=== PATIENT | male | born 1995 | race Caucasian/White ===

== ENCOUNTER 2017-10-10 22:46 | Emergency (ER) | payer OTHER ==
[~2017-10-10] VITALS: Ht 190.5 cm; Wt 83.9 kg
--- OUTSIDE RECORDS SUMMARY | 2017-10-10 22:54 | XMS REPORT | Continuity of Care Document ---
Author Author [facility] Organization [facility] Address Unknown Phone Unavailable Allergies There is no data. Medications There is no data. Problems Date Dx Coded Attending Type Code Diagnosis Diagnosed By 06/07/2016 F S62.336A Displaced fracture of neck of fifth metacarpal bone, right hand, initial encounter for closed fracture 06/12/2016 F S62.336A Displaced fracture of neck of fifth metacarpal bone, right hand, initial encounter for closed fracture 06/19/2016 F S62.336D Displaced fracture of neck of fifth metacarpal bone, right hand, subsequent encounter for fracture with routine healing 06/28/2016 F S62.336D Displaced fracture of neck of fifth metacarpal bone, right hand, subsequent encounter for fracture with routine healing Procedures Code [place] [address] MRI LOWER EXTREMITY WO CONTRAST ERWIN PATEL 10/19/2015 22319 Hand 3V PA/Obl/Lat Ethan Contreras 06/19/2016 26544 Hand 3V PA/Obl/Lat Ethan Contreras 06/28/2016 Results Test Result Range CMP - 02/09/17 15:25 GFR >60 >=60 GFR NonAfrican Norwegian >60 >=60 SODIUM:SCNC:PT:SER/PLAS:QN: 143 mmol/L 136-145 POTASSIUM:SCNC:PT:SER/PLAS:QN: 3.8 mmol/L 3.5-5.1 CHLORIDE:SCNC:PT:SER/PLAS:QN: 107 mmol/L 98-107 CARBON DIOXIDE:SCNC:PT:SER/PLAS:QN: 26 mmol/L 21-32 ANION GAP 3:SCNC:PT:SER/PLAS:QN: 10 7-16 UREA NITROGEN:MCNC:PT:SER/PLAS:QN: 9 mg/dL 6-20 CREATININE:MCNC:PT:SER/PLAS:QN: 1.1 mg/dL 0.8-1.3 GLUCOSE:MCNC:PT:SER/PLAS:QN: 81 mg/dL 70-110 CALCIUM:MCNC:PT:SER/PLAS:QN: 9.1 mg/dL 8.6-10.2 UREA NITROGEN/CREATININE:MRTO:PT:SER/PLAS:QN: 8.0 10.0- 20.1 ALKALINE PHOSPHATASE:CCNC:PT:SER/PLAS:QN: 88 unit/L 40- 129 BILIRUBIN:MCNC:PT:SER/PLAS:QN: 0.5 mg/dL 0.2-1.0 ALBUMIN:MCNC:PT:SER/PLAS:QN:BCP 4.0 gm/dL 3.4-5.0 PROTEIN:MCNC:PT:SER/PLAS:QN: 7.0 gm/dL 6.4-8.2 GLOBULIN:MCNC:PT:SER:QN:CALCULATED 3.0 gm/dL 2.0-3.5 ALBUMIN/GLOBULIN:MRTO:PT:SER/PLAS:QN: 1.3 0.9-3.6 ALANINE AMINOTRANSFERASE:CCNC:PT:SER/PLAS:QN:WITH P-5'-P 34 unit/L 0-45 ASPARTATE AMINOTRANSFERASE:CCNC:PT:SER/PLAS:QN:WITH P-5'-P 34 unit/ L 0-35 TSH - 02/09/17 15:25 THYROTROPIN:ACNC:PT:SER/PLAS:QN:DETECTION LIMIT <=0.05 MIU/L 2.29 mcIU/mL 0.36-3.74 Encounters ACCT No. Visit Date/Time Discharge Status Pt. Type Provider Facility Loc./Unit Complaint [id number] 02/09/2017 14:29:00 02/09/2017 23:59:59 [id number] 06/07/2016 00:00:00 Document Registration [id number] 10/22/2015 00:00:00 DIS Document Registration
--- NOTE | 2017-10-10 23:10 | ED Upper Extremity ---
General Chief Complaint: Laceration Stated Complaint: L INDEX FINGER LACERATION Source: patient Exam Limitations: no limitations History of Present Illness Date Seen by Provider: Oct 10, 2017 Time Seen by Provider: 22:57 Initial Comments The patient presents to the ER by private conveyance from work where he cut his left hand index finger distal phalanx with a tomato slicer just prior to arrival. It is still bleeding so he applied pressure and some gauze to get it to stop. He says he had his normal cough, and a vaccinations but he is not having a tetanus shot since 17-year-old. No fevers chills loss of function, range of motion or sensation. Allergies and Home Medications Allergies Coded Allergies: No Known Drug Allergies (Unverified , 10/10/17) Patient Home Medication List Home Medication List Reviewed: Yes Constitutional: No chills, No diaphoresis EENTM: No hearing loss, No ear pain Respiratory: No cough, No short of breath Cardiovascular: No chest pain, No edema Gastrointestinal: No abdominal pain, No constipation Past Gbzbbda-Npivfm-Qogtjm Hx Patient Social History Alcohol Use: Occasionally Uses Recreational Drug Use: Yes (THC) Smoking Status: Never a Smoker Recent Foreign Travel: No Contact w/Someone Who Travel: No Recent Hopitalizations: No Immunizations Up To Date Tetanus Booster (TDap): Less than 5yrs Seasonal Allergies Seasonal Allergies: No Past Medical History Surgeries: No Respiratory: No Cardiac: No Neurological: No Genitourinary: No Musculoskeletal: No Endocrine: No HEENT: No Cancer: No Psychosocial: No Integumentary: No Blood Disorders: No Physical Exam Vital Signs Capillary Refill : Less Than 3 Seconds Height, Weight, BMI Height: '" Weight: lbs. oz. kg; BMI Method: General Appearance: WD/WN, no apparent distress HEENT: PERRL/EOMI, pharynx normal Neck: non-tender, full range of motion Cardiovascular: normal peripheral pulses, regular rate, rhythm Respiratory: no respiratory distress, no accessory muscle use Procedures/Interventions Wound Location: Upper Extremities Other Wound Location Left hand index finger distal tip distal to the fingernail Wound Length (cm): 1 Wound's Depth, Shape: superficial Wound Explored: clean Betadine Prep?: No (soap and water) Wound Debrided: minimal Progress Patient's wound was cleaned thoroughly with soap and water and then dried and a thin layer of skin affix, cyanoacrylate was applied and allowed to dry for about 30 seconds and a second layer was applied. The wound was hemostatic, approximated, clean and the patient tolerated the procedure well. Progress/Results/Core Measures Progress Progress Note : Time: 23:09 Progress Note Closed with glue and tetanus updated. Departure Impression Primary Impression: Laceration of finger Qualified Codes: S61.211A - Laceration without foreign body of left index finger without damage to nail, initial encounter Disposition: HOME, SELF-CARE Condition: Improved Departure-Patient Inst. Decision time for Depature: 23:09 Referrals: NO,LOCAL PHYSICIAN (PCP/Family) Primary Care Physician Patient Instructions: Laceration Repair With Glue (DC) Add. Discharge Instructions: Keep the finger clean and dry for the next 30 minutes while the blue dryness. After that you can submerse and water, shower or bathe etc. The glue will flake off on its own over the next 10-14 days. All discharge instructions reviewed with patient and/or family. Voiced understanding. Work/School Note: Work Release Form Date Seen in the Emergency Department: Oct 10, 2017 Return to Work: Oct 10, 2017 Restrictions: No Restrictions JANE ERVIN Oct 10, 2017 23:10
[2017-10-10] MEDS ORDERED: TETANUS,DIPTH,PERTUSS P/F (BOOSTRIX) 0.5 ML VIAL IM ONE (23:15)
[2017-10-10 23:23] VITALS: BP 127/82
== END 2017-10-10 23:23 | disposition home or self-care (01) ==
LOC: ER 22:49
DX: S61.211A Laceration without foreign body of left index finger without damage to nail, initial encounter (principal); F12.10 Cannabis abuse, uncomplicated; W27.4XXA Contact with kitchen utensil, initial encounter
CPT/HCPCS: 90471; 90715

== ENCOUNTER → 2018-05-28 | Outpatient (CLI) | payer OTHER ==
--- NOTE | 2018-05-28 13:28 | Diagnostic Imaging Report ---
EXAMINATION: Right foot 11:32 AM. INDICATION: Injury, foot pain. Three views were obtained. COMPARISON: There are no prior studies available for comparison. FINDINGS: Reportedly, there is clinical concern regarding injury to the fifth metatarsal. The base of the fifth metatarsal appears normal and there is no clear evidence for a fracture involving the shaft. No other fracture or acute bony abnormality is appreciated. The Lisfranc joint is well maintained. The soft tissues are unremarkable. IMPRESSION: There is no evidence for an acute bony abnormality. Dictated by: Dictated on workstation # [id number]
== END ==
LOC: RAD 11:23
PROVIDERS: ATTEND Nurse Practitioner Family
DX: S99.921A Unspecified injury of right foot, initial encounter (principal)
CPT/HCPCS: 73630

== ENCOUNTER 2019-02-21 01:36 | Emergency (ER) | payer OTHER ==
[~2019-02-21] VITALS: Ht 190.5 cm; Wt 81.8 kg
[2019-02-21] MEDS ORDERED: LACTATED RINGERS 1,000 ML IV ONE ×2 (02:16→03:11)
[2019-02-21] MEDS ORDERED: HYOSCYAMINE 0.125 MG (LEVSIN) TAB SL ONE (02:30)
[2019-02-21] MEDS ORDERED: ONDANSETRON 4 MG/2 ML (SDV) Z0FRAN IVP ONE (02:30)
[2019-02-21] MEDS ORDERED: FAMOTIDINE 20MG/2ML IV (PEPCID) IVP ONE (02:30)
[2019-02-21 02:37] LABS: BASOPHILS % (AUTO) 0 % (0-10); EOSINOPHILS # (AUTO) 0.1 10^3/uL (0.0-0.3); EOSINOPHILS % (AUTO) 1 % (0-10); HEMATOCRIT 46 % (40-54); HEMOGLOBIN 16.7 G/DL (13.3-17.7); LYMPHOCYTES # (AUTO) 1.1 X 10^3 (1.0-4.0); LYMPHOCYTES % (AUTO) 6 % (12-44); MEAN CORPUSCULAR HEMOGLOBIN 30 PG (25-34); MEAN CORPUSCULAR HGB CONC 36 G/DL (32-36); MEAN CORPUSCULAR VOLUME 83 FL (80-99); MEAN PLATELET VOLUME 10.4 FL (7.4-10.4); MONOCYTES # (AUTO) 1.2 X 10^3 (0.0-1.0); MONOCYTES % (AUTO) 7 % (0-12); NEUTROPHILS # (AUTO) 15.2 X 10^3 (1.8-7.8); NEUTROPHILS % (AUTO) 87 % (42-75); PLATELET COUNT 283 10^3/uL (130-400); RED CELL DISTRIBUTION WIDTH 12.3 % (10.0-14.5); WHITE BLOOD COUNT 17.5 10^3/uL (4.3-11.0)
[2019-02-21 02:52] LABS: ALANINE AMINOTRANSFERASE 18 U/L (0-55); ALBUMIN 5.4 GM/DL (3.2-4.5); ALKALINE PHOSPHATASE 95 U/L (40-136); BILIRUBIN,TOTAL 1.7 MG/DL (0.1-1.0); BUN/CREATININE RATIO 10; CALCIUM 10.5 MG/DL (8.5-10.1); CARBON DIOXIDE 17 MMOL/L (21-32); CHLORIDE 104 MMOL/L (98-107); CREATININE SERUM 1.23 MG/DL (0.60-1.30); GFR ESTIMATED > 60; GLUCOSE 155 MG/DL (70-105); LIPASE 22 U/L (8-78); MAGNESIUM 1.4 MG/DL (1.6-2.4); POTASSIUM 3.6 MMOL/L (3.6-5.0); SODIUM 142 MMOL/L (135-145); TOTAL PROTEIN 8.3 GM/DL (6.4-8.2)
[2019-02-21 03:12] LABS: BAND NEUTROPHILS 9 %; NEUTROPHILS % (MANUAL) 73 %
[2019-02-21 03:13] LABS: BASOPHILS % (MANUAL) 1 %; EOSINOPHILS % (MANUAL) 3 %; LYMPHOCYTES % (MANUAL) 8 %; MONOCYTES % (MANUAL) 6 %; RBC MORPH NORMAL
[2019-02-21] MEDS ORDERED: MAGNESIUM 1 GM/100 ML IVPB 100 ML IV ONE (03:15)
[2019-02-21] MEDS ORDERED: LOPERAMIDE 2 MG (IMODIUM) TABLET PO ONE (03:15)
[2019-02-21] MEDS ORDERED: ONDA4TAB11 SL (04:16)
--- NOTE | 2019-02-21 04:17 | ED GI ---
General Chief Complaint: Abdominal/GI Problems Stated Complaint: VOMITING,DIARRHEA Nursing Triage Note: n/v/d abdominal pain Sepsis Screen: No Definite Risk Source of Information: Patient Exam Limitations: No Limitations History of Present Illness Date Seen by Provider: Feb 21, 2019 Time Seen by Provider: 02:13 Initial Comments This 23-year-old young man is brought to the emergency room by his girlfriend with complaints of vomiting and diarrhea profusely since around 21:00. He is not having significant pain. He does seem to have been hyperventilating and is now having contractures of his fingers and spasms in his legs. He drinks about 5 beers and smoked marijuana on the . He denies any blood in his stool. He is afebrile. He appears pale and rather fatigued. He does report history of having difficulty with anxiety. Allergies and Home Medications Allergies Coded Allergies: No Known Drug Allergies (Unverified , 10/10/17) Home Medications Ondansetron 4 Mg Tab.rapdis, 4 MG SL Q4H PRN for NAUSEA/VOMITING Prescribed by: TANI RIVERA on 02/21/19 0416 Patient Home Medication List Home Medication List Reviewed: Yes Review of Systems Review of Systems Constitutional: no symptoms reported EENTM: No Symptoms Reported Respiratory: No Symptoms Reported Cardiovascular: No Symptoms Reported Gastrointestinal: See HPI Genitourinary: No Symptoms Reported Musculoskeletal: no symptoms reported Skin: see HPI Psychiatric/Neurological: See HPI Endocrine: No Symptoms Reported Hematologic/Lymphatic: No Symptoms Reported Past Nmazgya-Mwmwpd-Iltcek Hx Past Med/Social Hx: Reviewed and Corrections made Patient Social History Alcohol Use: Occasionally Uses Alcohol Beverage of Choice: Beer Recreational Drug Use: Yes Drug of Choice: cannibus Smoking Status: Never a Smoker 2nd Hand Smoke Exposure: No Recent Foreign Travel: No Contact w/Someone Who Travel: No Recent Infectious Disease Expo: No Recent Hopitalizations: No Physical Abuse: No Sexual Abuse: No Mistreated: No Fear: No Immunizations Up To Date Tetanus Booster (TDap): Less than 5yrs Seasonal Allergies Seasonal Allergies: No Past Medical History Surgeries: No Respiratory: No Cardiac: No Neurological: No Genitourinary: No Gastrointestinal: No Musculoskeletal: No Endocrine: No HEENT: No Cancer: No Psychosocial: Yes Anxiety Integumentary: No Blood Disorders: No Physical Exam Vital Signs Vital Signs - First Documented 02/21/19 02:10 Temp 36.4 Pulse 76 Resp 16 B/P (MAP) 144/92 (109) Pulse Ox 98 O2 Delivery Room Air Capillary Refill : Less Than 3 Seconds Height/Weight/BMI Height: 6'3.00" Weight: 185lbs. oz. 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, no motor/sensory deficits, alert, oriented x 3, other (Anxious) Skin: normal color, warm/dry Progress/Results/Core Measures Results/Orders Lab Results Laboratory Tests Test 02/21/19 02:20 Range/Units White Blood Count 17.5 H 4.3-11.0 10^3/uL Red Blood Count 5.55 4.35-5.85 10^6/uL Hemoglobin 16.7 13.3-17.7 G/DL Hematocrit 46 40-54 % Mean Corpuscular Volume 83 80-99 FL Mean Corpuscular Hemoglobin 30 25-34 PG Mean Corpuscular Hemoglobin Concent 36 32-36 G/DL Red Cell Distribution Width 12.3 10.0-14.5 % Platelet Count 283 130-400 10^3/uL Mean Platelet Volume 10.4 7.4-10.4 FL Neutrophils (%) (Auto) 87 H 42-75 % Lymphocytes (%) (Auto) 6 L 12-44 % Monocytes (%) (Auto) 7 0-12 % Eosinophils (%) (Auto) 1 0-10 % Basophils (%) (Auto) 0 0-10 % Neutrophils # (Auto) 15.2 H 1.8-7.8 X 10^3 Lymphocytes # (Auto) 1.1 1.0-4.0 X 10^3 Monocytes # (Auto) 1.2 H 0.0-1.0 X 10^3 Eosinophils # (Auto) 0.1 0.0-0.3 10^3/uL Basophils # (Auto) 0.0 0.0-0.1 10^3/uL Neutrophils % (Manual) 73 % Lymphocytes % (Manual) 8 % Monocytes % (Manual) 6 % Eosinophils % (Manual) 3 % Basophils % (Manual) 1 % Band Neutrophils 9 % Blood Morphology Comment NORMAL Sodium Level 142 135-145 MMOL/L Potassium Level 3.6 3.6-5.0 MMOL/L Chloride Level 104 98-107 MMOL/L Carbon Dioxide Level 17 L 21-32 MMOL/L Anion Gap 21 H 5-14 MMOL/L Blood Urea Nitrogen 12 7-18 MG/DL Creatinine 1.23 0.60-1.30 MG/DL Estimat Glomerular Filtration Rate > 60 BUN/Creatinine Ratio 10 Glucose Level 155 H 70-105 MG/DL Calcium Level 10.5 H 8.5-10.1 MG/DL Corrected Calcium 8.5-10.1 MG/DL Magnesium Level 1.4 L 1.6-2.4 MG/DL Total Bilirubin 1.7 H 0.1-1.0 MG/DL Aspartate Amino Transf (AST/SGOT) 20 5-34 U/L Alanine Aminotransferase (ALT/SGPT) 18 0-55 U/L Alkaline Phosphatase 95 40-136 U/L Total Protein 8.3 H 6.4-8.2 GM/DL Albumin 5.4 H 3.2-4.5 GM/DL Lipase 22 8-78 U/L Serum Alcohol < 10 <10 MG/DL My Orders Orders - TANI JONES MD Ed Iv/Invasive Line Start (02/21/19 02:16) Lactated Ringers (Lr 1000 Ml Iv Solution (02/21/19 02:16) Alcohol (02/21/19 02:16) Cbc With Automated Diff (02/21/19 02:16) Comprehensive Metabolic Panel (02/21/19 02:16) Lipase (02/21/19 02:16) Magnesium (02/21/19 02:16) Ondansetron Injection (Zofran Injectio (02/21/19 02:30) Famotidine Injection (Pepcid Injection) (02/21/19 02:30) Hyoscyamine Sl Tablet (Levsin Sl Tablet) (02/21/19 02:30) Manual Differential (02/21/19 02:20) Lactated Ringers (Lr 1000 Ml Iv Solution (02/21/19 03:11) Magnesium 1 Gm/100 Ml Ivpb (Magnesium Pike (02/21/19 03:15) Loperamide Tablet (Imodium Tablet) (02/21/19 03:15) Medications Given in ED Current Medications Medications Dose Ordered Sig/Pablito Route Start Time Stop Time Status Last Admin Dose Admin Famotidine 20 mg ONCE ONCE IVP 02/21/19 02:30 02/21/19 02:31 DC 02/21/19 02:32 20 MG Hyoscyamine Sulfate 0.25 mg ONCE ONCE SL 02/21/19 02:30 02/21/19 02:31 DC 02/21/19 02:31 0.25 MG Lactated Ringer's 1,000 ml @ 0 mls/hr Q0M ONCE IV 02/21/19 02:16 02/21/19 02:18 DC 02/21/19 02:30 999 MLS/HR Lactated Ringer's 1,000 ml @ 0 mls/hr Q0M ONCE IV 02/21/19 03:11 02/21/19 03:13 DC 02/21/19 03:24 0 MLS/HR Loperamide HCl 4 mg ONCE ONCE PO 02/21/19 03:15 02/21/19 03:16 DC 02/21/19 03:24 4 MG Magnesium Sulfate/ Dextrose 100 ml @ 100 mls/hr ONCE ONCE IV 02/21/19 03:15 02/21/19 04:14 DC 02/21/19 03:24 100 MLS/HR Ondansetron HCl 8 mg ONCE ONCE IVP 02/21/19 02:30 02/21/19 02:31 DC 02/21/19 02:32 8 MG Vital Signs/I&O 02/21/19 02/21/19 02:10 04:20 Temp 36.4 36.5 Pulse 76 81 Resp 16 18 B/P (MAP) 144/92 (109) 133/71 (109) Pulse Ox 98 99 O2 Delivery Room Air Room Air Blood Pressure Mean: 109 POS Progress Progress Note : Progress Note Patient received 2 L of LR. Symptoms were treated with Zofran, Pepcid, and Levsin. Patient vomited times one around the time he received these medications. He later took Imodium without difficulty. Magnesium was replaced by IV route. Departure Impression Primary Impression: Nausea vomiting and diarrhea Additional Impression: Hypomagnesemia Disposition: 01 HOME, SELF-CARE Condition: Improved Departure-Patient Inst. Decision time for Depature: 04:14 Referrals: NO,LOCAL PHYSICIAN (PCP/Family) Primary Care Physician Patient Instructions: Viral Gastroenteritis Add. Discharge Instructions: Start with a clear liquid diet and gradually advance her diet with small quantities of bland food as tolerated. You may take [id number] Imodium for treatment of diarrhea. Follow instructions on package. Uses Zofran (ondansetron) as prescribed for nausea and vomiting. Return to care if you have worsening symptoms. All discharge instructions reviewed with patient and/or family. Voiced understanding. Scripts Ondansetron (Ondansetron Odt) 4 Mg Tab.rapdis 4 MG SL Q4H PRN for NAUSEA/VOMITING, #10 TAB Prov: TANI JONES MD 02/21/19 TANI JONES MD Feb 21, 2019 04:17 POS
[2019-02-21 04:20] VITALS: BP 133/71
== END 2019-02-21 04:20 | disposition home or self-care (01) ==
LOC: EDUNIT# 01:36 → ER 01:39
DX: E83.42 Hypomagnesemia (principal); R19.7 Diarrhea, unspecified; F41.9 Anxiety disorder, unspecified
CPT/HCPCS: 36415; 80053; 80320; 83690; 83735; 85007; 85027

== ENCOUNTER 2019-06-08 07:42 | Emergency (ER) | payer OTHER ==
[~2019-06-08] VITALS: Ht 187.9 cm; Wt 81.6 kg
[~2019-06-08 07:42] MED LIST: ONDA4TAB11 SL
[2019-06-08 08:09] VITALS: BP 130/80
[2019-06-08] MEDS ORDERED: BENZ-13 PO (08:26)
--- NOTE | 2019-06-08 08:26 | ED Cough/URI ---
General Chief Complaint: Fever-Adult/Adol Stated Complaint: FEVER / COUGH Source: patient, other Exam Limitations: no limitations History of Present Illness Date Seen by Provider: Jun 08, 2019 Time Seen by Provider: 08:10 Initial Comments Patient presents to ER by private conveyance from home with his significant other and chief complaint that Sunday started having malaise, body aches, off- again on-again productive cough with green sputum. He had a history of asthma when he was a child but after 8th grade he no longer experienced symptoms. He does not take any medications routinely. On Sunday he went to [facility] [place] and because he was afebrile but did not do any testing at that time. Today however he started experience fever with a stated Tmax of 102. He took some NyQuil before coming in. He is not having shortness of breath wheezing nausea or rash. He does not smoke cigarettes but he does use cannabis daily. The patient denies any recent travel outside the [place] [facility]. He said the only travel he is done recently was as far as [place]. No known sick contacts. Allergies and Home Medications Allergies Coded Allergies: No Known Drug Allergies (Unverified , 10/10/17) Home Medications Benzonatate 100 Mg Capsule, 100 MG PO Q6H PRN for COUGH Prescribed by: JANE ERVIN on 06/08/19 0826 Ondansetron 4 Mg Tab.rapdis, 4 MG SL Q4H PRN for NAUSEA/VOMITING Prescribed by: TANI RIVERA on 02/21/19 0416 Patient Home Medication List Home Medication List Reviewed: Yes Review of Systems Review of Systems Constitutional: chills, fever, malaise EENTM: No ear discharge, No ear pain Respiratory: cough, phlegm; No short of breath, No wheezing Cardiovascular: No chest pain, No edema Gastrointestinal: No abdominal pain, No nausea, No vomiting Genitourinary: No discharge, No dysuria Musculoskeletal: No back pain, No joint pain Skin: No pruritus, No rash All Other Systems Reviewed Negative Unless Noted: Yes Past Xruusar-Plkkku-Attncr Hx Patient Social History Alcohol Use: Occasionally Uses Alcohol Beverage of Choice: Beer Recreational Drug Use: Yes Drug of Choice: cannibus Smoking Status: Never a Smoker 2nd Hand Smoke Exposure: No Recent Foreign Travel: No Contact w/Someone Who Travel: No Recent Hopitalizations: No Immunizations Up To Date Tetanus Booster (TDap): Less than 5yrs Seasonal Allergies Seasonal Allergies: No Past Medical History Surgeries: No Respiratory: No Cardiac: No Neurological: No Genitourinary: No Gastrointestinal: No Musculoskeletal: No Endocrine: No HEENT: No Cancer: No Psychosocial: Yes Anxiety Integumentary: No Blood Disorders: No Physical Exam Vital Signs - First Documented 06/08/19 08:09 Temp 37.1 Pulse 75 Resp 15 B/P (MAP) 130/80 (97) Pulse Ox 100 O2 Delivery Room Air Capillary Refill : Height: 6'3.00" Weight: 185lbs. oz. 83.172598zz; 22.00 BMI Method:Stated General Appearance: WD/WN, no apparent distress Eyes: Bilateral Eye Normal Inspection, Bilateral Eye PERRL, Bilateral Eye EOMI HEENT: PERRL/EOMI, normal ENT inspection, TMs normal, pharyngeal erythema; No tonsillar exudate Neck: non-tender, full range of motion, supple, normal inspection Respiratory: chest non-tender, lungs clear, normal breath sounds, no respiratory distress, no accessory muscle use Cardiovascular: normal peripheral pulses, regular rate, rhythm Extremities: non-tender, normal capillary refill Neurologic/Psychiatric: alert, oriented x 3 Skin: normal color, warm/dry Progress/Results/Core Measures Suspected Sepsis SIRS Temperature: Pulse: Respiratory Rate: Blood Pressure / Mean: Results/Orders Micro Results Microbiology 06/08/19 Influenza Types A,B Antigen (NOHEMI) - Final, Complete My Orders Orders - JANE ERVIN Influenza A And B Antigens (06/08/19 08:14) Vital Signs/I&O 06/08/19 08:09 Temp 37.1 Pulse 75 Resp 15 B/P (MAP) 130/80 (97) Pulse Ox 100 O2 Delivery Room Air Capillary Refill : Progress Note #1: Time: 08:23 Progress Note Well-nourished aseptic vital sign well-developed adult male with no clinical symptoms of deterioration. Plan to obtain influenza swab. If this is negative we have given routine conservative symptomatic management counseling. Plan to put him on Tessalon Perles, humidifier vapor rubs etc. Progress Note #2: Time: 09:06 Progress Note As he has no risk factors and is not in any danger being admitted this patient is not a person under investigation for any significant epidemiological disease. Departure Impression Primary Impression: Viral upper respiratory tract infection with cough Disposition: HOME, SELF-CARE Condition: Stable Departure-Patient Inst. Decision time for Depature: 09:06 Referrals: NO,LOCAL PHYSICIAN (PCP/Family) Primary Care Physician Patient Instructions: Viral Upper Respiratory Infection, Adult (DC) Add. Discharge Instructions: Continue to drink plenty of fluids. If your phlegm becomes thick or hard to pass then you need use humidifiers, vapor rubs and drink more fluids to thin the mucus. Mucinex may also be beneficial. You may use DayQuil/NyQuil or other tvzv-[id number]-nbosznk symptomatic medications. Tylenol and ibuprofen will be helpful for body aches, chills and fever. Tessalon Perles 1 capsule every 6 hours as needed for cough. Return to the nearest ER. Difficulty breathing or other worrisome symptoms. Expect to be sick for about a week. You may return to work after you are fever and symptom free for 24 hours. All discharge instructions reviewed with patient and/or family. Voiced understanding. Scripts Benzonatate (Tessalon Perle) 100 Mg Capsule 100 MG PO Q6H PRN for COUGH, #30 CAP 0 Refills Prov: JANE ERVIN 06/08/19 Work/School Note: School/Childcare Release, Date Seen in the Emergency Department: Jun 08, 2019 Time Dismissed from Emergency Department: 08:26 Return to School: Jun 16, 2019 Restrictions: Return-No Fever (24hrs) Work Release Form Date Seen in the Emergency Department: Jun 08, 2019 Return to Work: Jun 16, 2019 Restrictions: Return-No Fever (24hrs) JANE ERVIN Jun 08, 2019 08:26
--- OUTSIDE RECORDS SUMMARY | 2019-06-08 23:38 | XMS REPORT | Continuity of Care Document ---
Author Organization Unknown Address Unknown Phone Unavailable Allergies Active Description Code Type Severity Reaction Onset Reported/Identified Relationship to Patient Clinical Status Yes No Known Drug Allergies [id number] Drug Allergy Unknown N/A 10/10/2017 Medications There is no data. Problems Date Dx Coded Attending Type Code Diagnosis Diagnosed By 06/07/2016 F S62.336A D isplaced fracture of neck of fifth metacarpal bone, right hand, initial encounter for closed fracture 06/12/2016 F S62.336A D isplaced fracture of neck of fifth metacarpal bone, right hand, initial encounter for closed fracture 06/19/2016 F S62.336D D isplaced fracture of neck of fifth metacarpal bone, right hand, subsequent encounter for fracture with routine healing 06/28/2016 F S62.336D D isplaced fracture of neck of fifth metacarpal bone, right hand, subsequent encounter for fracture with routine healing 10/12/2017 ARCADIO ZIEGLER, JANE Anderson Ot F12. 10 CANNABIS ABUSE, UNCOMPLICATED 10/12/2017 ARCADIO ZIEGLER, JANE Anderson Ot S61.211A LACERATION W/O FB OF L IDX FNGR W/O KIRAN 10/12/2017 ARCADIO ZIEGLER, JANE Anderson Ot W27.4XXA CONTACT WITH KITCHEN UTENSIL, INITIAL EN 05/28/2018 FILEMON RUFFIN Ot S99.921A UNSPECIFIED INJURY OF RIGHT FOOT, INITIA 02/21/2019 ROBERT ZIEGLER, TANI Elizabeth Ot E83.42 HYPOMAGNESEMIA 02/21/2019 ROBERT ZIEGLER, TANI Elizabeth Ot F41.9 ANXIETY DISORDER, UNSPECIFIED 02/21/2019 ROBERT ZIEGLER, TANI Elizabeth Ot R11.10 VOMITING, UNSPECIFIED 02/21/2019 ROBERT ZIEGLER, TANI Elizabeth Ot R19.7 DIARRHEA, UNSPECIFIED 02/25/2019 TANI JONES MD Ot E83.42 HYPOMAGNESEMIA 02/25/2019 ROBERT ZIEGLER, TNAI Elizabeth Ot F41.9 ANXIETY DISORDER, UNSPECIFIED 02/25/2019 TANI JONES MD Ot R11.10 VOMITING, UNSPECIFIED 02/25/2019 TANI JONES MD Ot R19.7 DIARRHEA, UNSPECIFIED 02/28/2019 TANI JONES MD Ot E83.42 HYPOMAGNESEMIA 02/28/2019 TANI JONES MD Ot F41.9 ANXIETY DISORDER, UNSPECIFIED 02/28/2019 TANI JONES MD Ot R11.10 VOMITING, UNSPECIFIED 02/28/2019 TANI JONES MD Ot R19.7 DIARRHEA, UNSPECIFIED Procedures Code Description [place] [address] MRI LOWER EXTREMITY WO CONTRAST PATEL ERWIN 10/19/2015 37070 Hand 3V PA/Obl/Lat Ben, Ethan 06/19/2016 18747 Hand 3V PA/Obl/Lat Ben, Ethan 06/28/2016 Results Test Result Range CMP - 02/09/17 15:25 GFR >60 >=60 GFR NonAfrican Mosotho >60 >=60 SODIUM:SCNC:PT:SER/PLAS:QN: 143 mmol/L 1 36-145 POTASSIUM:SCNC:PT:SER/PLAS:QN: 3.8 mmol/L 3.5-5.1 CHLORIDE:SCNC:PT:SER/PLAS:QN: 107 mmol/L 98-107 CARBON DIOXIDE:SCNC:PT:SER/PLAS:QN: 26 mmol/L 21-32 ANION GAP 3:SCNC:PT:SER/PLAS:QN: 10 7-16 UREA NITROGEN:MCNC:PT:SER/PLAS:QN: 9 mg/dL 6-20 CREATININE:MCNC:PT:SER/PLAS:QN: 1.1 mg/dL 0.8-1.3 GLUCOSE:MCNC:PT:SER/PLAS:QN: 81 mg/dL 7 0-110 CALCIUM:MCNC:PT:SER/PLAS:QN: 9.1 mg/dL 8 .6-10.2 UREA NITROGEN/CREATININE:MRTO:PT:SER/PLAS:QN: 8.0 10.0-20.1 ALKALINE PHOSPHATASE:CCNC:PT:SER/PLAS:QN: 88 unit/ L 40-129 BILIRUBIN:MCNC:PT:SER/PLAS:QN: 0.5 mg/dL 0.2-1.0 ALBUMIN:MCNC:PT:SER/PLAS:QN:BCP 4.0 gm/dL 3.4-5.0 PROTEIN:MCNC:PT:SER/PLAS:QN: 7.0 gm/dL 6 .4-8.2 GLOBULIN:MCNC:PT:SER:QN:CALCULATED 3.0 gm/dL 2.0-3.5 ALBUMIN/GLOBULIN:MRTO:PT:SER/PLAS:QN: 1.3 0.9-3.6 ALANINE AMINOTRANSFERASE:CCNC:PT:SER/PLAS:QN:WITH P-5' -P 34 unit/L 0-45 ASPARTATE AMINOTRANSFERASE:CCNC:PT:SER/PLAS:QN:WITH P- 5'-P 34 unit/L 0-35 TSH - 02/09/17 15:25 THYROTROPIN:ACNC:PT:SER/PLAS:QN:DETECTION LIMIT <= 0.0 5 MIU/L 2.29 mcIU/mL 0.36-3.74 Complete blood count (CBC) with automate d white blood cell (WBC) differential - 02/21/19 02:20 Blood leukocytes automated count (number/volume) 17.5 10*3/uL 4.3-11.0 Blood erythrocytes automated count (number/volume) 5.55 10*6/uL 4.35-5.85 Venous blood hemoglobin measurement (mass/volume) 16.7 g/dL 13.3-17.7 Blood hematocrit (volume fraction) 46 % 40-54 Automated erythrocyte mean corpuscular volume 83 [ foz_us] 80-99 Automated erythrocyte mean corpuscular h emoglobin (mass per erythrocyte) 30 pg 25-34 Automated erythrocyte mean corpuscular h emoglobin concentration measurement (mass/volume) 36 g/dL 32-36 Automated erythrocyte distribution width ratio 12. 3 % 10.0- 14.5 Automated blood platelet count (count/volume) 283 10*3/uL 130-400 Automated blood platelet mean volume measurement 10.4 [foz_us] 7.4-10.4 Automated blood neutrophils/100 leukocytes 87 % 42-75 Automated blood lymphocytes/100 leukocytes 6 % 12-44 Blood monocytes/100 leukocytes 7 % 0-12 Automated blood eosinophils/100 leukocytes 1 % 0-10 Automated blood basophils/100 leukocytes 0 % 0-10 Blood neutrophils automated count (number/volume) 15.2 10*3 1.8-7.8 Blood lymphocytes automated count (number/volume) 1.1 10*3 1.0-4.0 Blood monocytes automated count (number/volume) 1. 2 10*3 0.0-1.0 Automated eosinophil count 0.1 10*3/uL 0 .0-0.3 Automated blood basophil count (count/volume) 0.0 10*3/uL 0.0-0.1 Comprehensive metabolic panel - 02/21/19 02:20 Serum or plasma sodium measurement (moles/volume) 142 mmol/L 135-145 Serum or plasma potassium measurement (moles/volume) 3.6 mmol/L 3.6-5.0 Serum or plasma chloride measurement (moles/volume) 104 mmol/L 98-107 Carbon dioxide 17 mmol/L 21-32 Serum or plasma anion gap determination (moles/volume) 21 mmol/L 5-14 Serum or plasma urea nitrogen measurement (mass/volume ) 12 mg/dL 7-18 Serum or plasma creatinine measurement (mass/volume) 1.23 mg/dL 0.60-1.30 Serum or plasma urea nitrogen/creatinine mass ratio 10 NRG Serum or plasma creatinine measurement w ith calculation of estimated glomerular filtration rate > NRG Serum or plasma glucose measurement (mass/volume) 155 mg/dL 70-105 Serum or plasma calcium measurement (mass/volume) 10.5 mg/dL 8.5-10.1 Serum or plasma total bilirubin measurement (mass/volu me) 1.7 mg/dL 0.1-1.0 Serum or plasma alkaline phosphatase zain surement (enzymatic activity/volume) 95 U/L 40-136 Serum or plasma aspartate aminotransfera se measurement (enzymatic activity/volume) 20 U/L 5-34 Serum or plasma alanine aminotransferase measurement (enzymatic activity/volume) 18 U/L 0-55 Serum or plasma protein measurement (mass/volume) 8.3 g/dL 6.4-8.2 Serum or plasma albumin measurement (mass/volume) 5.4 g/dL 3.2-4.5 Magnesium - 02/21/19 02:20 Magnesium 1.4 mg/dL 1.6-2.4 Lipase - 02/21/19 02:20 Lipase 22 U/L 8-78 Serum or plasma ethanol measurement (mas s/volume) - 02/21/19 02:20 Serum or plasma ethanol measurement (mass/volume) < mg/dL <10 Manual absolute plasma cell count - 01/25 12/12 02:20 Blood monocytes/100 leukocytes 6 % NRG Manual blood segmented neutrophils/100 leukocytes 73 % NRG Blood band neutrophils/100 leukocytes 9 % NRG Manual blood lymphocytes/100 leukocytes 8 % NRG Manual eosinophils/100 leukocytes in nose 3 % NRG Manual blood basophils/100 leukocytes 1 % NRG Blood erythrocyte morphology finding identification NORMAL NRG Influenza virus A and B antigen detectio n - 06/08/19 08:15 FLU RESULT NEGATIVE FOR INFLUENZA A AND B ANTIGENS BY IA NRG Encounters ACCT No. Visit Date/Time Discharge Status Pt. Type Provider Facility Loc./Unit Complaint [id number] 02/09/2017 14:29:00 02/09/2017 23: 59:59 CLS Out[place] [facility] [id number] 02/21/2019 01:39:00 04:20:00 DIS Emergency ROBERT ZIEGLER, TANI Elizabeth [facility] ER VOMITING,DIARRH EA [id number] 05/28/2018 11:23:00 23:59:59 CLS Outpatient FILEMON RUFFIN [facility] RAD RIGHT FOOT INJU RY [id number] 10/10/2017 22:49:00 018 23:23:00 DIS Outpatient ARCADIO ZIEGLER, JANE Anderson [facility] ER L INDEX FINGER LACERATI ON [id number] 06/08/2019 08:53:00 Document Registration [id number] 06/07/2016 00:00:00 Document Registration [id number] 10/22/2015 00:00:00 DIS Document Registration
== END 2019-06-08 09:13 | disposition home or self-care (01) ==
LOC: EDUNIT# 07:42 → ER 07:44
DX: J06.9 Acute upper respiratory infection, unspecified (principal)
CPT/HCPCS: 87804